=== PATIENT | male | born 1975 | race Two or more races ===

== ENCOUNTER 2025-05-21 09:17 | Inpatient (IN) | payer OTHER ==
[~2025-05-21] VITALS: Ht 149.9 cm; Wt 55.2 kg
--- NOTE | 2025-05-21 09:44 | ED.PDOC ---
History of Present Illness HPI Comments 50-year-old male presents here with dizziness abdominal pain and states they got a call from laboratory that his hemoglobin is 5.5. Patient was recently admitted to an outside hospital in early April where he was diagnosed with gastric cancer. He was placed on iron pills soon after. Daughter states he does report black stools since his discharge on May 06 from the hospital. He is seeing a cancer physician and found [facility] who was already started his cancer treatment and he has a port that has been placed but no chemotherapy has not started yet. Patient denies any recent cough cold runny nose fever or chills. No shortness of breath. Chief Complaint: Abnormal LAB's Time Seen by MD: 09:40 Reviewed Notes: Nurses Notes, Medications, Allergies Allergies: Coded Allergies: NO KNOWN ALLERGIES (Unverified , 05/21/25) Information Source: Patient Mode of Arrival: Ambulatory Severity: Moderate Timing: Days Duration: Since onset Prehospital treatment: None Past Medical History PAST MEDICAL HISTORY: Cancer (stomach) Surgical History: Denies all surgeries Family History Family History: Unknown Social History Smoker: Non-Smoker Alcohol: Denies ETOH Use Drugs: Denies Drug Use Lives In: Home Constitutional: denies: chills, diaphoresis, fatigue, fever, malaise, sweats, weakness, others EENTM: denies: blurred vision, double vision, ear bleeding, ear discharge, ear drainage, ear pain, ear ringing, eye pain, eye redness, hearing loss, mouth pain, mouth swelling, nasal discharge, nose bleeding, nose congestion, nose pain, photophobia, tearing, throat pain, throat swelling, voice changes, others Respiratory: denies: cough, hemoptysis, orthopnea, SOB at rest, shortness of breath, SOB with excertion, stridor, wheezing, others Cardiovascular: denies: chest pain, dizzy spells, diaphoresis, Dyspnea on exertion, edema, irregular heart beat, left arm pain, lightheadedness, palpitations, PND, syncope, others Gastrointestinal: denies: abdomen distended, abdominal pain, blood streaked bowels, constipated, diarrhea, dysphagia, difficulty swallowing, hematemesis, melena, nausea, poor appetite, poor fluid intake, rectal bleeding, rectal pain, vomiting, others Genitourinary: denies: burning, dysuria, flank pain, frequency, hematuria, incontinence, penile discharge, penile sore, pain, testicle pain, testicle swelling, urgency, others Neurological: denies: dizziness, fainting, headache, left sided numbness, left sided weakness, numbness, paresthesia, pre-existing deficit, right sided numbness, right sided weakness, seizure, speech problems, tingling, tremors, weakness, others Musculoskeletal: denies: back pain, gout, joint pain, joint swelling, muscle pain, muscle stiffness, neck pain, others Integumetry: denies: bruises, change in color, change in hair/nails, dryness, laceration, lesions, lumps, rash, wounds, others Allergic/Immunocompromised: denies: Difficulty Healing, Frequent Infections, Hives, Itching, others Hematologic/Lymphatic: denies: anemia, blood clots, easy bleeding, easy bruising, swollen glands, others Endocrine: denies: excessive hunger, excessive sweating, excessive thirst, excessive urination, flushing, intolerance to cold, intolerance to heat, unexpl ained weight gain, unexplained weight loss, others Psychiatric: denies: anxiety, bipolar disorder, depression, hopeless, panic disorder, schizophrenia, sleepless, suicidal, others All Other Systems: Reviewed and Negative Physical Exam General Appearance: Mild Distress, Normal, Thin HEENT: Normal ENT Inspection, Pharynx Normal Neck: Full Range of Motion, Non-Tender, Normal, Normal Inspection Respiratory: Chest Non-Tender, Lungs Clear, No Accessory Muscle Use, No Respiratory Distress, Normal Breath Sounds Cardiovascular: No Edema, No Murmur, No Gallop, Normal Peripheral Pulses, Regular Rate/Rhythm Breast Exam: Deferred Gastrointestinal: No Organomegaly, No Pulsatile Mass, Normal Bowel Sounds, Soft, Tenderness (Mild diffuse abdominal tenderness to palpation worse in the epigastric region) Genitalia: Deferred Pelvic: Deferred Rectal: Deferred Extremities: No calf tenderness, Normal capillary refill, Normal inspection, Normal range of motion, Non-tender, No pedal edema Musculoskeletal : Apperance: Normal Neurologic: Alert, safety deposit supervisor II-XII nml as Tested, No Motor Deficits, Normal Affect, Normal Mood, No Sensory Deficits Cerebellar Function: Normal Reflexes: Normal Skin: Dry, Pallor Lymphatic: No Adenopathy Was a procedure done? Was a procedure done?: No Differential Dx Considerations may include: anemia Upper GI bleed, electrolyte disturbance, dehydration, lower GI bleed, severe anemia X-Ray, Labs, Meds, VS Vital Signs Date Time Temp Pulse Resp B/P (MAP) Pulse Ox O2 Delivery O2 Flow Rate FiO2 05/21/25 11:38 18 100 Room Air* 0 21 05/21/25 11:38 98.3 89 18 95/62 (73) 100 98.3 05/21/25 09:18 99.0 106 15 109/68 98 99.0 Lab Test 05/21/25 13:08 05/21/25 12:15 05/21/25 11:34 Range/Units White Blood Count 9.3 4.4-10.8 10^3/uL Red Blood Count 2.32 L 4.5-5.90 10^6/uL Hemoglobin 6.1 *L 13.5-17.5 g/dL Hematocrit 19.3 L 41.0-53.0 % Mean Corpuscular Volume 83.6 80.0-100.0 fL Mean Corpuscular Hemoglobin 26.3 L 28.0-32.0 pg Mean Corpuscular Hemoglobin Concent 31.5 L 32.0-36.0 g/dL Red Cell Distribution Width 19.7 H 11.8-14.3 % Platelet Count 256 140-450 10^3/uL Mean Platelet Volume 8.0 6.9-10.8 fL Neutrophils (%) (Auto) 84.0 H 37.0-80.0 % Lymphocytes (%) (Auto) 8.7 L 10.0-50.0 % Monocytes (%) (Auto) 5.8 0.0-12.0 % Eosinophils (%) (Auto) 0.9 0.0-7.0 % Basophils (%) (Auto) 0.6 0.0-2.0 % Neutrophils # (Auto) 7.8 1.6-8.6 10 ^3/uL Lymphocytes # (Auto) 0.8 0.4-5.4 10 ^3/uL Monocytes # (Auto) 0.5 0-1.3 10 ^3/uL Eosinophils # (Auto) 0.1 0-0.8 10 ^3/uL Basophils # (Auto) 0.1 0-0.2 10 ^3/uL Nucleated Red Blood Cells 0.1 % Iron Level 31 L 65-175 ug/dL Total Iron Binding Capacity 290 250-425 ug/dL Percent Iron Saturation 10.7 L 20-55 % Sodium Level 137 136-145 mmol/L Potassium Level 4.9 3.5-5.1 mmol/L Chloride Level 105 98-107 mmol/L Carbon Dioxide Level 23 20-31 mmol/L Anion Gap 9 5-15 Blood Urea Nitrogen 15 9-23 mg/dL Creatinine 0.77 0.700-1.30 mg/dL Glomerular Filtration Rate Calc 108 >90 mL/min BUN/Creatinine Ratio 19.5 10.0-20.0 Serum Glucose 95 74-106 mg/dL Calcium Level 8.3 L 8.7-10.4 mg/dL Urine Color Yellow Yellow Urine Clarity Turbid H Clear Urine pH 5.5 5.0-9.0 Urine Specific [place] 1.018 1.001-1.035 Urine Protein Negative Negative Urine Ketones Negative Negative Urine Blood Negative Negative /uL Urine Nitrite Negative Negative Urine Bilirubin Negative Negative Urine Urobilinogen Normal Negative mg/dL Urine Leukocyte Esterase Negative Negative /uL Urine RBC 1 0 - 3 /hpf Urine Microscopic WBC 4 H 0-3 /HPF Urine Squamous Epithelial Cells None seen <5 /hpf Urine Bacteria None seen None Seen /hpf Urine Mucus Few None Seen Urine Glucose Normal Normal mg/dL Current Medications Medications (Trade) Dose Ordered Sig/Satish Route Start Time Stop Time Status Last Admin Sodium Chloride 500 ml @ 500 mls/hr Q1H ONCE IV 05/21/25 11:45 05/21/25 12:44 DC 05/21/25 12:00 50-year-old male with a known history of gastric carcinoma presents here with low with hemoglobin at outside facility. He reports dizziness and appears pale to me. I have ordered a CBC BMP and type and screen here in the ER. I have given him stool had to check for stool occult blood. patient has given consent for blood transfusion if needed. Blood work has been returned with a hemoglobin is 6.1. BMP is unremarkable. He has been unable to provide a stool sample to check for occult blood. At this time I have written for transfusion of 1 unit PRBC. Hospitalist team has been contacted for admission. Time of 1ST Reevaluation: 10:10 Reevaluation 1ST: Unchanged Patient Education/Counseling: Diagnosis, Treatment Family Education/Counseling: No Family Present SEPSIS Sepsis Screen Date sepsis recognized/suspect: May 21, 2025 Time Sepsis recognized/suspect: 920 Recent Procedure: No On Antibiotic Therapy: No Respiratory Rate >20: No Heart Rate >90: No Temp<36 C (96.8 F) or >38.3 C: No SBP <90 or MAP <65 mmHG: No New Acute Mental Status Change: No Is the patient on CPAP, BIPAP,: No Physician Orders Stool Occult Blood (05/21/25 11:30) Type And Screen (05/21/25 11:41) Transfuse Blood Product (05/21/25 14:01) Transfuse Blood (05/21/25 ) Packedcells -Active Bleeding (05/21/25 14:03) Vital Signs .PER UNIT PROTOCOL (05/21/25 14:03) Administer Blood Products UD (05/21/25 14:03) Vital Signs Date Time Temp Pulse Resp B/P (MAP) Pulse Ox O2 Delivery O2 Flow Rate FiO2 05/21/25 11:38 18 100 Room Air* 0 21 05/21/25 11:38 98.3 89 18 95/62 (73) 100 98.3 05/21/25 09:18 99.0 106 15 109/68 98 99.0 Laboratory Tests Test 05/21/25 13:08 White Blood Count 9.3 10^3/uL (4.4-10.8) Medications Medications Dose Ordered Sig/Satish Route Start Time Stop Time Status Last Admin Dose Admin Sodium Chloride 500 ml @ 500 mls/hr Q1H ONCE IV 05/21/25 11:45 05/21/25 12:44 DC 05/21/25 12:00 Departure 1 Departure Time of Disposition: 12:10 Impression: Primary Impression: Severe anemia Additional Impression: Gastric cancer Qualified Codes: C16.9 - Malignant neoplasm of stomach, unspecified Disposition: 09 ADMITTED INPATIENT Condition: Serious Critical Care Note Critical Care Time?: Yes (35 min-critical care time only) Critical care comment: Time spent multiple re-evaluations of the patient, calling laboratory for follow up of hemoglobin, ordering blood products speaking to nursing staff, assessing patient's dizziness Stability Stability form required: No Heart Score Heart Score: Heart Score Response (Comments) Value History N/A 0 EKG N/A 0 Age N/A 0 Risk Factors N/A 0 Troponin N/A 0 Total 0 I personally scribed for RICH SUNG MD ([email or web address]) on 05/21/25 at 09:44. Electronically submitted by Kierra Valverde ([email or web address]). RICH SUNG MD May 21, 2025 09:44
[2025-05-21 11:38] VITALS: RESP 18; O2SAT 100
[2025-05-21] MEDS: SODIUM CHLORIDE 0.9% 500 ML IV ONE (12:00)
[2025-05-21 12:45] LABS: Chloride 105 mmol/L (98-107); Potassium 4.9 mmol/L (3.5-5.1); Sodium 137 mmol/L (136-145)
[2025-05-21 12:47] LABS: Anion Gap 9 (5-15); Carbon Dioxide 23 mmol/L (20-31)
[2025-05-21 12:49] LABS: Calcium 8.3 mg/dL (8.7-10.4)
[2025-05-21 12:52] LABS: BUN/Creatinine Ratio 19.5 (10.0-20.0); Blood Urea Nitrogen 15 mg/dL (9-23); Glucose 95 mg/dL (74-106)
[2025-05-21 14:03] LABS: Urine Protein, UAD Negative (Negative)
[2025-05-21 14:06] LABS: Hematocrit 19.3 % (41.0-53.0); Mean Corpuscular Volume 83.6 fL (80.0-100.0)
[2025-05-21 14:07] LABS: Mean Corpuscular Hemoglobin 26.3 pg (28.0-32.0); Nucleated Red Blood Cells % 0.1 %
[2025-05-21 14:14] LABS: Hemoglobin 6.1 g/dL (13.5-17.5)
[2025-05-21 14:35] LABS: Iron 31.0 ug/dL (65-175); Total Iron Binding Capacity 290.0 ug/dL (250-425)
[2025-05-21] MEDS ORDERED: ACETAMINOPHEN 325 MG TAB PO PRN (14:45)
[2025-05-21] MEDS ORDERED: DOCUSATE SOD 100 MG CAP PO PRN (14:45)
[2025-05-21] MEDS ORDERED: ONDANSETRON HCL 4 MG/2 ML VIAL IV PRN (14:45)
[2025-05-21] MEDS ORDERED: HYDROcodone-ACET 5/325MG TAB PO PRN (14:45)
--- NOTE | 2025-05-21 14:48 | DVHHP2 ---
Admitting Diagnosis: Anemia History of Present Illness 50-year-old male presents here with dizziness abdominal pain and states they got a call from laboratory that his hemoglobin is 5.5. Patient was recently admitted to an outside hospital in early April where he was diagnosed with gastric cancer. He was placed on iron pills soon after. Niece states he does report black stools since his discharge on May 06 from the hospital. He is seeing a cancer physician and found to [facility] who was already started his cancer treatment and he has a port that has been placed but no chemotherapy has not started yet. Patient denies any recent cough cold runny nose fever or chills. No shortness of breath. PAST MEDICAL HISTORY: Cancer (stomach) Surgical History: Denies all surgeries Family History Family History: Unknown Social History Smoker: Non-Smoker Alcohol: Denies ETOH Use Drugs: Denies Drug Use Lives In: Home Allergies: Coded Allergies: NO KNOWN ALLERGIES (Unverified , 05/21/25) Current Medications Current Medications Medications (Trade) Dose Ordered Sig/Satish Route PRN Reason Start Time Stop Time Status Last Admin Sodium Chloride (Saline Lock Ns) 10 ml Q8HR IV 05/21/25 22:00 UNV Docusate Sodium (Colace Capsule) 100 mg BIDPRN PRN PO FOR CONSTIPATION 05/21/25 14:45 UNV Acetaminophen (Tylenol Tablet) 650 mg Q6HP PRN PO PAIN SCALE 1-3 OR TEMP>100.4 05/21/25 14:45 UNV Acetaminophen/ Hydrocodone Bitart ([place] 5/325MG Tab) 1 tab Q4HP PRN PO MODERATE PAIN (4-6 PAIN SCALE) 05/21/25 14:45 UNV Ondansetron HCl (Zofran) 4 mg Q4HP PRN IV NAUSEA / VOMITING 05/21/25 14:45 UNV Iron Sucrose 110 ml @ 110 mls/hr DAILY@1200 IV 05/21/25 14:45 05/25/25 12:59 UNV Vital Signs Vital Signs Date Time Temp Pulse Resp B/P (MAP) Pulse Ox O2 Delivery O2 Flow Rate FiO2 05/21/25 11:38 18 100 Room Air* 0 21 05/21/25 11:38 98.3 89 95/62 (73) 98.3 Physical Exam Generally-51 years old male, well nourished. No apparent distress HEENT-atraumatic normocephalic Heart-regular rate and rhythm Lungs clear to auscultate bilaterally Abdomen soft nontender nondistended Musculoskeletal-no cyanosis, positive edema plus one pitting Neuro-AO x3, no focal deficits SEPSIS Sepsis Screen Date sepsis recognized/suspect: May 21, 2025 Time Sepsis recognized/suspect: 920 Recent Procedure: No On Antibiotic Therapy: No Respiratory Rate >20: No Heart Rate >90: No Temp<36 C (96.8 F) or >38.3 C: No SBP <90 or MAP <65 mmHG: No New Acute Mental Status Change: No Is the patient on CPAP, BIPAP,: No Physician Orders Stool Occult Blood (05/21/25 11:30) Transfuse Blood Product (05/21/25 14:01) Transfuse Blood (05/21/25 ) Packedcells -Active Bleeding (05/21/25 14:03) Vital Signs .PER UNIT PROTOCOL (05/21/25 14:03) Administer Blood Products UD (05/21/25 14:03) Admit (05/21/25 14:39) Code Status (05/21/25 14:39) Review Orders With Adm.Md (05/21/25 14:39) Encourage Activity As Tolerate (05/21/25 14:39) Regular Diet (05/21/25 Dinner) Sodium Chloride Lock (Saline Lock Ns) (05/21/25 22:00) Docusate Sodium Capsule (Colace Capsule) (05/21/25 14:45) Acetaminophen Tablet (Tylenol Tablet) (05/21/25 14:45) Notify Md Of Changes From Base (05/21/25 14:39) Advance Directive (05/21/25 14:39) Patient Condition (05/21/25 14:39) Allergies (05/21/25 14:39) Hydrocodone-Acet 5/325mg Tab ([place] 5/32 (05/21/25 14:45) Ondansetron Hcl (Zofran) (05/21/25 14:45) Comprehensive Metabolic Panel (05/22/25 05:00) Comprehensive Metabolic Panel (05/23/25 05:00) Comprehensive Metabolic Panel (05/24/25 05:00) Comprehensive Metabolic Panel (05/25/25 05:00) Comprehensive Metabolic Panel (05/26/25 05:00) Complete Blood Count (05/22/25 05:00) Complete Blood Count (05/23/25 05:00) Complete Blood Count (05/24/25 05:00) Complete Blood Count (05/25/25 05:00) Complete Blood Count (05/26/25 05:00) Iron Sucrose Complex (Venofer) (05/21/25 14:45) Vital Signs Date Time Temp Pulse Resp B/P (MAP) Pulse Ox O2 Delivery O2 Flow Rate FiO2 05/21/25 11:38 18 100 Room Air* 0 21 05/21/25 11:38 98.3 89 18 95/62 (73) 100 98.3 05/21/25 09:18 99.0 106 15 109/68 98 99.0 Laboratory Tests Test 05/21/25 13:08 White Blood Count 9.3 10^3/uL (4.4-10.8) Medications Medications Dose Ordered Sig/Satish Route Start Time Stop Time Status Last Admin Dose Admin Sodium Chloride 500 ml @ 500 mls/hr Q1H ONCE IV 05/21/25 11:45 05/21/25 12:44 DC 05/21/25 12:00 Results Labs Test 05/21/25 13:08 05/21/25 12:15 05/21/25 11:34 Range/Units White Blood Count 9.3 4.4-10.8 10^3/uL Red Blood Count 2.32 L 4.5-5.90 10^6/uL Hemoglobin 6.1 *L 13.5-17.5 g/dL Hematocrit 19.3 L 41.0-53.0 % Mean Corpuscular Volume 83.6 80.0-100.0 fL Mean Corpuscular Hemoglobin 26.3 L 28.0-32.0 pg Mean Corpuscular Hemoglobin Concent 31.5 L 32.0-36.0 g/dL Red Cell Distribution Width 19.7 H 11.8-14.3 % Platelet Count 256 140-450 10^3/uL Mean Platelet Volume 8.0 6.9-10.8 fL Neutrophils (%) (Auto) 84.0 H 37.0-80.0 % Lymphocytes (%) (Auto) 8.7 L 10.0-50.0 % Monocytes (%) (Auto) 5.8 0.0-12.0 % Eosinophils (%) (Auto) 0.9 0.0-7.0 % Basophils (%) (Auto) 0.6 0.0-2.0 % Neutrophils # (Auto) 7.8 1.6-8.6 10 ^3/uL Lymphocytes # (Auto) 0.8 0.4-5.4 10 ^3/uL Monocytes # (Auto) 0.5 0-1.3 10 ^3/uL Eosinophils # (Auto) 0.1 0-0.8 10 ^3/uL Basophils # (Auto) 0.1 0-0.2 10 ^3/uL Nucleated Red Blood Cells 0.1 % Iron Level 31 L 65-175 ug/dL Total Iron Binding Capacity 290 250-425 ug/dL Percent Iron Saturation 10.7 L 20-55 % Sodium Level 137 136-145 mmol/L Potassium Level 4.9 3.5-5.1 mmol/L Chloride Level 105 98-107 mmol/L Carbon Dioxide Level 23 20-31 mmol/L Anion Gap 9 5-15 Blood Urea Nitrogen 15 9-23 mg/dL Creatinine 0.77 0.700-1.30 mg/dL Glomerular Filtration Rate Calc 108 >90 mL/min BUN/Creatinine Ratio 19.5 10.0-20.0 Serum Glucose 95 74-106 mg/dL Calcium Level 8.3 L 8.7-10.4 mg/dL Urine Color Yellow Yellow Urine Clarity Turbid H Clear Urine pH 5.5 5.0-9.0 Urine Specific [place] 1.018 1.001-1.035 Urine Protein Negative Negative Urine Ketones Negative Negative Urine Blood Negative Negative /uL Urine Nitrite Negative Negative Urine Bilirubin Negative Negative Urine Urobilinogen Normal Negative mg/dL Urine Leukocyte Esterase Negative Negative /uL Urine RBC 1 0 - 3 /hpf Urine Microscopic WBC 4 H 0-3 /HPF Urine Squamous Epithelial Cells None seen <5 /hpf Urine Bacteria None seen None Seen /hpf Urine Mucus Few None Seen Urine Glucose Normal Normal mg/dL Primary Diagnosis Portal vein thrombosis not on anticoagulation Severe anemia requiring blood transfusion 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 Patient has not started, diarrhea. Patient was diagnosed with a portal vein thrombosis but ultimately correlation in view of anemia. Patient was blood draw few days ago and oncology recommended patient recorded in ED for blood transfusion. Patient was also taking iron supplement and began to have black stool. IV Venofer Once patient hemoglobin stable recommended discharge and follow up with the outpatient oncology for further evaluation and recommendation Monitor for melena Hemoglobin goal greater than seven Full code SCD for DVT prophylaxis PPI for GI prophylaxis Plan discussed with: Patient, Other (Niece) Problems List: (1) Gastric cancer (2) Severe anemia Date of Service: May 21, 2025 Billing Provider: PATO EL MD Common Visit Codes: [id number] INP/OBS CARE (HIGH) PATO EL MD May 21, 2025 14:48
[2025-05-21] MEDS: IRON SUCROSE COMPLEX 110 ML IV SCH (14:54)
[2025-05-21 17:20] VITALS: BP 121/77; PULSE 79; RESP 15; TEMP 98.2
[2025-05-21 17:23] VITALS: BP 119/76; PULSE 78; RESP 14; TEMP 98.2
[2025-05-21 17:38] VITALS: BP 118/83; PULSE 86; RESP 14; TEMP 98.1
[2025-05-21 19:30] VITALS: BP 121/89; PULSE 90; RESP 18; TEMP 97.8
[2025-05-21] MEDS: SODIUM CHLOR 0.9% PF (SALINE LOCK) 10ML VIAL/SYR IV SCH (22:00)
[2025-05-22] VITALS (8 sets, daily range): BP systolic 108–120; BP diastolic 74–81; PULSE 75–89; RESP 18–24; TEMP 98–98.4; O2SAT 99
[2025-05-22 06:58] LABS: Mean Corpuscular Volume 82.2 fL (80.0-100.0); Nucleated Red Blood Cells % 0.1 %
[2025-05-22 07:03] LABS: Hematocrit 20.8 % (41.0-53.0); Mean Corpuscular Hemoglobin 26.9 pg (28.0-32.0)
[2025-05-22 07:07] LABS: Hemoglobin 6.8 g/dL (13.5-17.5)
[2025-05-22 07:12] LABS: Albumin 3.3 g/dL (3.2-4.8); Anion Gap 9 (5-15); BUN/Creatinine Ratio 24.7 (10.0-20.0); Blood Urea Nitrogen 19 mg/dL (9-23); Carbon Dioxide 25 mmol/L (20-31); Chloride 105 mmol/L (98-107); Glucose 87 mg/dL (74-106); Potassium 4.5 mmol/L (3.5-5.1); Sodium 139 mmol/L (136-145)
[2025-05-22 07:15] LABS: Alanine Aminotransferase 342 U/L (7-40); Bilirubin, Total 1.7 mg/dL (0.2-1.0); Calcium 8.2 mg/dL (8.7-10.4); Total Protein 5.2 g/dL (5.7-8.2)
[2025-05-22 07:20] LABS: Alkaline Phosphatase 1309 U/L (46-116)
[2025-05-22 08:21] LABS: INR 1.01 (0.9-1.15); Partial Thromboplastin Time 26.8 SEC (24.5-34.5); Prothrombin Time 10.7 sec (9.3-11.8)
--- NOTE | 2025-05-22 11:53 | DVHPN2 ---
Subjective The patient seen and examined at bedside. He is very pale and weak. Reviewed: Care Plan, H&P, Labs, Medications, Previous Orders Changes from previous H/P or p: No Changes Objective Vitals Vital Signs Date Time Temp Pulse Resp B/P (MAP) Pulse Ox O2 Delivery O2 Flow Rate FiO2 05/22/25 10:10 98.0 82 20 116/78 98.0 05/22/25 09:30 99 05/22/25 09:30 Room Air* 0 21 Intake/Output Intake and Output 05/22/25 07:00 Intake Total 710 ml Output Total 0 ml Balance 710 ml Intake Oral 0 ml IV Total 610 ml Other 100 ml Output Urine Total 0 ml General Appearance: Alert, Oriented X3, Cooperative, No acute distress HEENT: Atraumatic, PERRLA, EOMI, Mucous membr. moist/pink Neck: Supple Lungs: Clear to auscultation, Normal air movement Cardiovascular: Regular rate, Normal S1, Normal S2, No murmurs, Gallops, Rubs Abdomen: Normal bowel sounds, Soft, No tenderness Neuro: Cranial nerves 3-12 NL Psych/Mental Status: Mental status NL Medications Current Medications Medications Dose Ordered Sig/Satish Route Start Time Stop Time Status Last Admin Dose Admin Sodium Chloride 10 ml Q8HR IV 05/21/25 22:00 05/22/25 06:00 10 ML Docusate Sodium 100 mg BIDPRN PRN PO 05/21/25 14:45 Acetaminophen 650 mg Q6HP PRN PO 05/21/25 14:45 Acetaminophen/ Hydrocodone Bitart 1 tab Q4HP PRN PO 05/21/25 14:45 Ondansetron HCl 4 mg Q4HP PRN IV 05/21/25 14:45 Iron Sucrose 110 ml @ 110 mls/hr DAILY@1200 IV 05/21/25 14:45 05/25/25 12:59 05/21/25 14:54 110 MLS/HR Laboratory Results Laboratory Tests 05/22/25 06:12 Chemistry Test 05/21/25 12:15 05/22/25 06:12 Calcium Level 8.3 mg/dL (8.7-10.4) L 8.2 mg/dL (8.7-10.4) L Albumin 3.3 g/dL (3.2-4.8) Total Protein 5.2 g/dL (5.7-8.2) L Coagulation Test 05/22/25 06:12 Prothrombin Time 10.7 sec (9.3-11.8) Prothrombin Time INR 1.01 (0.9-1.15) Activated Partial Thromboplast Time 26.8 SEC (24.5-34.5) LFT Test 05/22/25 06:12 Alanine Aminotransferase (ALT) 342 U/L (7-40) H Alkaline Phosphatase 1309 U/L (46-116) H Aspartate Amino Transferase (AST) 280 U/L (13-40) H Total Bilirubin 1.7 mg/dL (0.2-1.0) H Urinalysis Test 05/21/25 11:34 Urine Color Yellow (Yellow) Urine Clarity Turbid (Clear) H Urine pH 5.5 (5.0-9.0) Urine Specific [place] 1.018 (1.001-1.035) Urine Protein Negative (Negative) Urine Ketones Negative (Negative) Urine Blood Negative /uL (Negative) Urine Nitrite Negative (Negative) Urine Bilirubin Negative (Negative) Urine Urobilinogen Normal mg/dL (Negative) Urine Leukocyte Esterase Negative /uL (Negative) Urine RBC 1 /hpf (0 - 3) Urine Microscopic WBC 4 /HPF (0-3) H Urine Squamous Epithelial Cells None seen /hpf (<5) Urine Bacteria None seen /hpf (None Seen) Urine Mucus Few (None Seen) Urine Glucose Normal mg/dL (Normal) Labs and/or images reviewed: Labs reviewed by me Assessment/Plan Assessment/Plan Portal vein thrombosis not on anticoagulation Severe anemia requiring blood transfusion 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 Patient has not started chemotherapy yet. He suppose to start on Thursday. Patient was diagnosed with a portal vein thrombosis but ultimately correlation in view of anemia. Patient was blood draw few days ago and oncology recommended patient recorded in ED for blood transfusion. Patient was also taking iron supplement and began to have black stool. IV Venofer Monitor for melena Hemoglobin goal greater than seven Plan discussed with: Patient Date of Service: May 22, 2025 Billing Provider: GRACE MAJANO MD Common Visit Codes: [id number] INP/OBS CARE(HIGH) GRACE MAJANO MD May 22, 2025 11:53
[2025-05-22 23:26] LABS: Hematocrit 26.7 % (41.0-53.0); Hemoglobin 8.8 g/dL (13.5-17.5)
[2025-05-23 00:35] VITALS: PULSE 81; RESP 18; O2SAT 98
[2025-05-23 01:00] VITALS: BP 118/72; PULSE 81; RESP 18; TEMP 97.8; O2SAT 98
[2025-05-23] MEDS ORDERED: FER325T PO (01:43)
[2025-05-23] MEDS ORDERED: IBUP-1453 PO (01:43)
[2025-05-23 05:00] VITALS: BP 112/55; PULSE 78; RESP 17; TEMP 97.7; O2SAT 98
[2025-05-23 07:14] LABS: Hematocrit 24.2 % (41.0-53.0); Hemoglobin 8.0 g/dL (13.5-17.5); Mean Corpuscular Hemoglobin 27.7 pg (28.0-32.0); Mean Corpuscular Volume 83.4 fL (80.0-100.0); Nucleated Red Blood Cells % 0.0 %
[2025-05-23 07:28] LABS: Albumin 3.3 g/dL (3.2-4.8); Anion Gap 10 (5-15); BUN/Creatinine Ratio 21.7 (10.0-20.0); Blood Urea Nitrogen 15 mg/dL (9-23); Carbon Dioxide 23 mmol/L (20-31); Chloride 104 mmol/L (98-107); Glucose 84 mg/dL (74-106); Potassium 4.0 mmol/L (3.5-5.1); Sodium 137 mmol/L (136-145)
[2025-05-23 07:31] LABS: Alanine Aminotransferase 333 U/L (7-40); Bilirubin, Total 3.1 mg/dL (0.2-1.0); Calcium 8.1 mg/dL (8.7-10.4); Total Protein 5.2 g/dL (5.7-8.2)
[2025-05-23 07:41] LABS: Alkaline Phosphatase 1333 U/L (46-116)
[2025-05-23 09:00] VITALS: BP 119/83; PULSE 87; RESP 18; TEMP 98.1; O2SAT 97
--- NOTE | 2025-05-23 11:42 | DVHDS2 ---
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 Labs/Diagnostic Data: Laboratory Results Test 05/23/25 06:41 05/22/25 20:17 05/22/25 06:12 05/21/25 13:08 White Blood Count 8.2 10^3/uL (4.4-10.8) Red Blood Count 2.90 10^6/uL (4.5-5.90) Hemoglobin 8.0 g/dL (13.5-17.5) Hematocrit 24.2 % (41.0-53.0) Mean Corpuscular Volume 83.4 fL (80.0-100.0) Mean Corpuscular Hemoglobin 27.7 pg (28.0-32.0) Mean Corpuscular Hemoglobin Concent 33.3 g/dL (32.0-36.0) Red Cell Distribution Width 17.7 % (11.8-14.3) Platelet Count 193 10^3/uL (140-450) Mean Platelet Volume 7.5 fL (6.9-10.8) Neutrophils (%) (Auto) 82.3 % (37.0-80.0) Lymphocytes (%) (Auto) 9.4 % (10.0-50.0) Monocytes (%) (Auto) 6.6 % (0.0-12.0) Eosinophils (%) (Auto) 1.1 % (0.0-7.0) Basophils (%) (Auto) 0.6 % (0.0-2.0) Neutrophils # (Auto) 6.7 10 ^3/uL (1.6-8.6) Lymphocytes # (Auto) 0.8 10 ^3/uL (0.4-5.4) Monocytes # (Auto) 0.5 10 ^3/uL (0-1.3) Eosinophils # (Auto) 0.1 10 ^3/uL (0-0.8) Basophils # (Auto) 0 10 ^3/uL (0-0.2) Nucleated Red Blood Cells 0.0 % Sodium Level 137 mmol/L (136-145) Potassium Level 4.0 mmol/L (3.5-5.1) Chloride Level 104 mmol/L (98-107) Carbon Dioxide Level 23 mmol/L (20-31) Anion Gap 10 (5-15) Blood Urea Nitrogen 15 mg/dL (9-23) Creatinine 0.69 mg/dL (0.700-1.30) Glomerular Filtration Rate Calc 111 mL/min (>90) BUN/Creatinine Ratio 21.7 (10.0-20.0) Serum Glucose 84 mg/dL (74-106) Calcium Level 8.1 mg/dL (8.7-10.4) Total Bilirubin 3.1 mg/dL (0.2-1.0) Aspartate Amino Transferase (AST) 249 U/L (13-40) Alanine Aminotransferase (ALT) 333 U/L (7-40) Alkaline Phosphatase 1333 U/L (46-116) Total Protein 5.2 g/dL (5.7-8.2) Albumin 3.3 g/dL (3.2-4.8) Stool Occult Blood Negative (Negative) Stool Occult Blood Sample #3 (Negative) Prothrombin Time 10.7 sec (9.3-11.8) Prothrombin Time INR 1.01 (0.9-1.15) Activated Partial Thromboplast Time 26.8 SEC (24.5-34.5) Iron Level 31 ug/dL (65-175) Total Iron Binding Capacity 290 ug/dL (250-425) Percent Iron Saturation 10.7 % (20-55) Test 05/21/25 11:34 Urine Color Yellow (Yellow) Urine Clarity Turbid (Clear) Urine pH 5.5 (5.0-9.0) Urine Specific [place] 1.018 (1.001-1.035) Urine Protein Negative (Negative) Urine Ketones Negative (Negative) Urine Blood Negative /uL (Negative) Urine Nitrite Negative (Negative) Urine Bilirubin Negative (Negative) Urine Urobilinogen Normal mg/dL (Negative) Urine Leukocyte Esterase Negative /uL (Negative) Urine RBC 1 /hpf (0 - 3) Urine Microscopic WBC 4 /HPF (0-3) Urine Squamous Epithelial Cells None seen /hpf (<5) Urine Bacteria None seen /hpf (None Seen) Urine Mucus Few (None Seen) Urine Glucose Normal mg/dL (Normal) Other Laboratory Tests 05/23/25 06:41 Brief Hx & Hospital Course: This is a 50 years old male come to emergency department because of dizzy, abdominal pain and stated that the lab called him and advised him to come to hospital because his hemoglobin is only 5.5. The patient apparently was just diagnosis with gastric cancer at the outside hospital in [facility]. He had had a port put in but no chemotherapy yet. The patient is supposed to see the oncologist at [facility] in a couple day to start chemotherapy. The patient's hemoglobin was 6.1. The patient received two packed red blood cell in the hospital. Today his hemoglobin up to 8.0 he did not complain of any dizziness. I am going to discharge him home. Advised him to follow up with his oncologist in a.m. for initiate his chemotherapy. Advised him to follow up with his primary care physician 1-2 weeks. Activity as tolerated. Diet per home diet. Physical exam: HEENT: Normocephalic atraumatic pupils equal react to light and accommodation. Extraocular muscles intact, conjunctiva pink, oropharynx moist, no thrush, no exudate. Lymphatic: No lymphadenopathy Cardiovascular exam: S1, S2 was heard. No murmurs, rubs, gallops Lung: Clear on auscultation bilaterally, no wheeze, rale, rhonchi. GI: Abdominal soft, nondistended, nontenderness, positive bowel sounds. Extremity: No crepitus, cyanosis, edema. Pedal pulses present bilateral. Full range of motion. Skin: Normal turgor, no rash. Psych: Alert, oriented x3. Neurology: No focal deficits, cranial nerve II to XII grossly intact. This medical document was created using an electronic medical record system with M*[employer]iot[employer] direct computerized dictation system. Although this document has been carefully reviewed, there may still be some phonetic and typographical errors. These areas are purely typographical due to imperfections of the software programs, and do not reflect any compromise in the patient's medical care. 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 Medications: resume home meds Scheduled Ferrous Sulfate (Ferrous Sulfate), 65 MG PO DAILY, (Reported) Ibuprofen (Ibuprofen), 1 TAB PO Q6HPRN, (Reported) Discharge Statement: "Patient was advised to return to the ER or call 911 if any headaches, dizziness, shortness of breath, chest pain, abdominal pain, bleeding, fevers, or worsening of medical condition. Patient was counseled about treatment plan, medications, possible side effects, patientverbalized understanding. All questions were answered to the best of my ability. This discharge took greater then 30 minutes in planning, reviewing documentation, counseling the patient, and discussing with other team members." ASSESSMENT ASSESSMENT Assessment acute blood lost anemia Date of Service: May 23, 2025 Billing Provider: GRACE MAJANO MD Common Visit Codes: 81050-QKE/OBS DISCH DAY >30min GRACE MAJANO MD May 23, 2025 11:42
[2025-05-23 13:11] VITALS: BP 109/72; PULSE 93; RESP 16; TEMP 98; O2SAT 96
== END 2025-05-23 15:09 | disposition home or self-care (01) | DRG 663 ==
LOC: ER 09:17 → OVERFLOW 14:39 → CENTRAL 05-22 23:33
PROVIDERS: ADMIT Internal Medicine; ATTEND Internal Medicine
PROC: 30233N1 Transfusion of Nonautologous Red Blood Cells into Peripheral Vein, Percutaneous Approach (ICD-10-PCS; principal; 2025-05-21)
DX: D62 Acute posthemorrhagic anemia (principal); I81 Portal vein thrombosis; C16.9 Malignant neoplasm of stomach, unspecified; C78.7 Secondary malignant neoplasm of liver and intrahepatic bile duct
CPT/HCPCS: 36415; 36430; 80048; 80053; 81001; 82270; 83540; 83550; 85014; 85018; 85025; 85610; 85730; 86850; 86900; 86901; 86920; 96360; 99291; G0378; J1756

== ENCOUNTER 2025-08-10 20:19 | Inpatient (IN) | payer OTHER ==
[~2025-08-10] VITALS: Ht 162.6 cm; Wt 48.4 kg
[2025-08-10] MEDS: SOD CHL 0.45% 1,000 ML IV SCH (01:55)
[2025-08-10] MEDS: CALCIUM GLUC 1,000mg/50ml-NS 50 ML IV ONE (01:55)
[~2025-08-10 20:19] MED LIST: FER325T PO; IBUP-1453 PO
[2025-08-10] MEDS: SODIUM CHLORIDE 0.9% 500 ML IV ONE (20:39)
[2025-08-10] MEDS: ONDANSETRON HCL 4 MG/2 ML VIAL IV ONE (20:45)
[2025-08-10 20:55] VITALS: PULSE 106
--- NOTE | 2025-08-10 21:00 | ED.PDOC ---
HPI (NEURO) HPI Comments HPI: 50 y/o M, PUNEET, presents to the ED for CC of s/p syncopal episode. EMS reports, patient is coming from home where he had a witnessed syncopal episode by family following a period of active emesis. Per EMS, patient has stage IV stomach/liver cancer and has had [id number] episodes in the last x3days. Family relays, tiki ent last had chemotherapy x1week ago. Patient endorses, hitting his head during syncopal episode. At this time patient c/o pain to his left rib area. Pain is acute on chronic. Patient denies active bleeding, dizziness, or melena. No other symptoms or modifying factors are present at this time. 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 REVIEW OF SYSTEMS: CONSTITUTIONAL: Denies acute: fever, diaphoresis, chills, HEAD: Denies acute: headache, photophobia Eyes: Denies acute: Double vision, vision loss, eye pain, eye discharge. EARS: Denies acute: tinnitus, hearing loss, ear discharge, ear pain, THROAT: Denies acute: sore throat, swelling, difficulty swallowing , pain with swallowing, change in voice. NECK: Denies acute: neck pain, neck swelling, stiff neck. HEART: Denies acute : chest pain, palpitations, LUNGS: Denies acute: SOB, wheezing, cough, hemoptysis ABDOMEN: Denies acute: abdominal pain, Nausea, Vomiting, diarrhea, melena , hematemesis, hematochezia SKIN: Denies acute: rash, redness, lesions, itchiness. EXTREMITIES: Denies acute: calf pain, numbness, tingling, weakness, denies pain in extremity. Denies acute: Low back pain. Neuro: Denies acute: focal neurological deficit, motor or sensory focal neurological deficit, tremors, seizure like activity, confusion, change in mental status, loss of bowel or bladder function, cauda equina like symptoms. : Denies acute: dysuria, hematuria, flank pain, increase in urinary frequency. PSYCH: Denies acute: hallucination, suicidal ideation, homicidal ideation. PHYSICAL EXAM: General: ----mild----acute distress, awake and alert. Head: normocephalic, atraumatic. No raccoon's eyes, no patten sign. Neck: supple, trachea is midline, no swelling. Throat: Normal phonation. Eyes:, no erythema, no purulent discharge, no proptosis, no icterus. Heart: regular tachycardia, no significant murmur appreciated. Lungs: no apparent respiratory distress, Able to speak in full sentences. No wheezing, no rhonchi, no crackles. No stridors Clear to auscultation bilaterally. Abdomen: non tender to palpation, non distended, soft, no guarding, no rebound, + bowel sounds. Neuro: Awake, Alert, oriented to name, self, situation, follows commands GCS=15. Speech is normal. Skin: no petechia, no purpura, no cyanosis, non-pale, not jaundice. Lower extremities: --no - Pitting edema no deformity, no focal swelling, no calf TTP. Makes eye contact. moves all four extremities. Face: no apparent facial droop. No nuchal rigidity, Kernig's sign, Brudzinski's sign, no meningeal signs. ED COURSE: DISCLAIMER: This medical document was created using an electronic medical record system with voice recognition software and computerized dictation system. Although this document has been carefully reviewed, there might still be some phonetic and typographical errors. Occasional wrong-word or "sound-alike" substitutions may have occurred due to the inherent limitations of voice recognition software. These areas are purely typographical due to imperfections of the software programs and do not reflect any compromise in the patient's medical care. Please read the chart carefully and recognize, using context, where these substitutions have occurred. Trotter: Syncope Collapse, hypotension, generalized weakness HPI: Poor Historian. REVIEW OF SYSTEMS: CONSTITUTIONAL: Denies acute: fever, diaphoresis, chills, HEAD: Denies acute: headache, photophobia Eyes: Denies acute: Double vision, vision loss, eye pain, eye discharge. EARS: Denies acute: tinnitus, hearing loss, ear discharge, ear pain, THROAT: Denies acute: sore throat, swelling, difficulty swallowing , pain with swallowing, change in voice. NECK: Denies acute: neck pain, neck swelling, stiff neck. HEART: Denies acute : chest pain, palpitations, LUNGS: Denies acute: SOB, wheezing, cough, hemoptysis ABDOMEN: Denies acute: abdominal pain, diarrhea, melena , hematemesis, hematochezia SKIN: Denies acute: rash, redness, lesions, itchiness. EXTREMITIES: Denies acute: calf pain, numbness, tingling, weakness, denies pain in extremity. Denies acute: Low back pain. Neuro: Denies acute: focal neurological deficit, motor or sensory focal neurological deficit, tremors, seizure like activity, confusion, , change in mental status, loss of bowel or bladder function, cauda equina like symptoms. : Denies acute: dysuria, hematuria, flank pain, increase in urinary frequency. PSYCH: Denies acute: hallucination, suicidal ideation, homicidal ideation. PHYSICAL EXAM: General: ------NO--acute distress, awake and alert. Head: normocephalic, atraumatic. No raccoon's eyes, no patten sign. Neck: supple, trachea is midline, no swelling. Throat: Normal phonation. Eyes:, no erythema, no purulent discharge, no proptosis, no icterus. Heart: regular rate, regular rhythm, no significant murmur appreciated. Lungs: no apparent respiratory distress, Able to speak in full sentences. No wheezing, no rhonchi, no crackles. No stridors Clear to auscultation bilaterally. Abdomen: non tender to palpation, non distended, soft, no guarding, no rebound, + bowel sounds. Neuro: Awake, Alert, oriented to name, self, situation, follows commands GCS=15. Speech is normal. Skin: no petechia, no purpura, no cyanosis, non-pale, not jaundice. Lower extremities: --no - Pitting edema no deformity, no focal swelling, no calf TTP. Makes eye contact. moves all four extremities. Face: no apparent facial droop. No nuchal rigidity, Kernig's sign, Brudzinski's sign, no meningeal signs. ED COURSE: DISCLAIMER: This medical document was created using an electronic medical record system with voice recognition software and computerized dictation system. Although this document has been carefully reviewed, there might still be some phonetic and typographical errors. Occasional wrong-word or "sound-alike" substitutions may have occurred due to the inherent limitations of voice recognition software. These areas are purely typographical due to imperfections of the software programs and do not reflect any compromise in the patient's medical care. Please read the chart carefully and recognize, using context, where these substitutions have occurred. Chief Complaint: Syncope Time Seen by MD: 20:50 Reviewed Notes: Nurses Notes, Trainman Notes, Medications, Allergies Information Source: Patient, Emergency Med Personnel Mode of Arrival: EMS Severity: Moderate Timing: Days Duration: Minutes Prehospital treatment: None Onset: At rest Circumstances: Other (following emesis) Symptoms: Syncope Before: Lethargic During: Awake After: Normal Mentation History of: Anemia, Cancer Modifying factors: Nothing Associated Signs and Symptoms: Nausea, Vomiting Was a procedure done? Was a procedure done?: No Differential Diagnosis (SZ) General Weakness: Anemia, Dehydration X-Ray, Labs, Meds, VS Vital Signs Date Time Temp Pulse Resp B/P (MAP) Pulse Ox O2 Delivery O2 Flow Rate FiO2 08/10/25 20:55 98.3 106 18 84/44 (57) 100 98.3 08/10/25 20:55 106 08/10/25 20:21 109 08/10/25 20:21 98.0 110 18 92/57 98 98.0 Lab Test 08/10/25 23:03 08/10/25 22:30 08/10/25 22:09 08/10/25 21:45 Range/Units Lactic Acid Level 2.8 *H 0.4-2.0 mmol/L Urine Color Light-yellow Yellow Urine Clarity Clear Clear Urine pH 5.0 5.0-9.0 Urine Specific [place] 1.015 1.001-1.035 Urine Protein Trace H Negative Urine Ketones Negative Negative Urine Blood Negative Negative /uL Urine Nitrite Negative Negative Urine Bilirubin Negative Negative Urine Urobilinogen Normal Negative mg/dL Urine Leukocyte Esterase Negative Negative /uL Urine RBC None seen 0 - 3 /hpf Urine Microscopic WBC 2 0-3 /HPF Urine Squamous Epithelial Cells Few <5 /hpf Urine Bacteria None seen None Seen /hpf Urine Mucus Few None Seen Urine Sperm Present None Seen /hpf Urine Glucose Normal Normal mg/dL White Blood Count 4.2 L 4.4-10.8 10^3/uL Red Blood Count 0.93 L 4.5-5.90 10^6/uL Hemoglobin 2.4 *L 13.5-17.5 g/dL Hematocrit 7.6 L 41.0-53.0 % Mean Corpuscular Volume 81.3 80.0-100.0 fL Mean Corpuscular Hemoglobin 26.1 L 28.0-32.0 pg Mean Corpuscular Hemoglobin Concent 32.2 32.0-36.0 g/dL Red Cell Distribution Width 19.3 H 11.8-14.3 % Platelet Count 104 L 140-450 10^3/uL Mean Platelet Volume 7.2 6.9-10.8 fL Neutrophils (%) (Auto) 67.8 37.0-80.0 % Lymphocytes (%) (Auto) 19.6 10.0-50.0 % Monocytes (%) (Auto) 12.0 0.0-12.0 % Eosinophils (%) (Auto) 0.0 0.0-7.0 % Basophils (%) (Auto) 0.6 0.0-2.0 % Neutrophils # (Auto) 2.8 1.6-8.6 10 ^3/uL Lymphocytes # (Auto) 0.8 0.4-5.4 10 ^3/uL Monocytes # (Auto) 0.5 0-1.3 10 ^3/uL Eosinophils # (Auto) 0 0-0.8 10 ^3/uL Basophils # (Auto) 0 0-0.2 10 ^3/uL Nucleated Red Blood Cells 1.3 % Hemoglobin A1c < 5.7 <5.7 % A1C Troponin I High Sensitivity < 3 L </=54 ng/L Test 08/10/25 20:57 Range/Units Sodium Level 140 136-145 mmol/L Potassium Level 4.0 3.5-5.1 mmol/L Chloride Level 106 98-107 mmol/L Carbon Dioxide Level 22 20-31 mmol/L Anion Gap 12 5-15 Blood Urea Nitrogen 28 H 9-23 mg/dL Creatinine 0.74 0.700-1.30 mg/dL Glomerular Filtration Rate Calc 109 >90 mL/min BUN/Creatinine Ratio 37.8 H 10.0-20.0 Serum Glucose 172 H 74-106 mg/dL Lactic Acid Level 3.8 *H 0.4-2.0 mmol/L Calcium Level 7.1 L 8.7-10.4 mg/dL Magnesium Level 1.6 1.6-2.6 mg/dL Total Bilirubin 0.6 0.2-1.0 mg/dL Aspartate Amino Transferase (AST) 28 13-40 U/L Alanine Aminotransferase (ALT) 25 7-40 U/L Alkaline Phosphatase 189 H 46-116 U/L Troponin I High Sensitivity < 3 L </=54 ng/L B-Type Natriuretic Peptide 6.14 0-100 pg/mL Total Protein 4.2 L 5.7-8.2 g/dL Albumin 2.3 L 3.2-4.8 g/dL Current Medications Medications (Trade) Dose Ordered Sig/Satish Route Start Time Stop Time Status Last Admin Sodium Chloride 500 ml @ 500 mls/hr Q1H ONCE IV 08/10/25 20:45 08/10/25 21:44 DC 08/10/25 20:39 Sodium Chloride 1,000 ml @ 1,000 mls/hr Q1H ONCE IV 08/10/25 21:45 08/10/25 22:44 DC 08/10/25 21:37 Time of 1ST Reevaluation: 21:20 Reevaluation 1ST: Unchanged Patient Education/Counseling: Diagnosis, Treatment Family Education/Counseling: No Family Present Departure 1 Departure Time of Disposition: 21:24 Impression: Primary Impression: Syncope and collapse Additional Impressions: Hypotension Closed head injury Severe anemia Disposition: ADMITTED INPATIENT Admit to: Tele Condition: Guarded Discharged With: Self Critical Care Note Critical Care Time?: Yes (55 min-critical care time only) I personally scribed for PANTERA CANO DO ([email or web address]) on 08/10/25 at 21:00. Elect ronically submitted by Kierra Valverde [email or web address]). PANTERA CANO DO Aug 10, 2025 21:00
--- NOTE | 2025-08-10 21:09 | DVH ---
INDICATION: syncopal episode TECHNIQUE: Frontal view of the chest. COMPARISON: None FINDINGS/IMPRESSION: The lungs are clear. The cardiomediastinal silhouette is unremarkable. No pleural effusion or pneumothorax. No acute osseous abnormality. Right port tip projects over the SVC.
[2025-08-10 21:37] LABS: Alanine Aminotransferase 25 U/L (7-40); Anion Gap 12 (5-15); BUN/Creatinine Ratio 37.8 (10.0-20.0); Carbon Dioxide 22 mmol/L (20-31); Chloride 106 mmol/L (98-107); Magnesium 1.6 mg/dL (1.6-2.6); Potassium 4.0 mmol/L (3.5-5.1); Sodium 140 mmol/L (136-145)
[2025-08-10] MEDS: SODIUM CHLORIDE 0.9% 1,000 ML IV ONE (21:37)
[2025-08-10 21:38] LABS: Bilirubin, Total 0.6 mg/dL (0.2-1.0)
[2025-08-10 21:48] LABS: Albumin 2.3 g/dL (3.2-4.8); Alkaline Phosphatase 189 U/L (46-116); Blood Urea Nitrogen 28 mg/dL (9-23); Calcium 7.1 mg/dL (8.7-10.4); Glucose 172 mg/dL (74-106); Total Protein 4.2 g/dL (5.7-8.2)
[2025-08-10 21:52] LABS: Lactic Acid w/Reflex 3.8 mmol/L (0.4-2.0)
[2025-08-10] MEDS ORDERED: ONDANSETRON HCL 4 MG/2 ML VIAL IV PRN (22:15)
[2025-08-10] MEDS ORDERED: HYDROcodone-ACET 5/325MG TAB PO PRN (22:15)
[2025-08-10] MEDS ORDERED: IBUPROFEN 600 MG TAB PO PRN (22:15)
[2025-08-10] MEDS ORDERED: DOCUSATE SOD 100 MG CAP PO PRN (22:15)
--- NOTE | 2025-08-10 22:22 | DVH ---
EXAM: CT HEAD WITHOUT CONTRAST INDICATION: fall, syncope TECHNIQUE: CT images of the head were obtained without administration of IV contrast. CT scans at this facility use dose modulation, iterative reconstruction, and/or weight based dosing when appropriate to reduce radiation dose to as low as reasonably achievable. COMPARISON: None FINDINGS: The cerebral parenchyma appears to be normal configuration and attenuation. The ventricles, cisterns, and sulci appear age-appropriate. There is no evidence for acute territorial infarct, hemorrhage, or mass effect. The orbits are normal. The visualized paranasal sinuses and mastoid air cells are clear. The soft tissues and osseous structures appear within normal limits. IMPRESSION: 1. No acute territorial infarct, intracranial hemorrhage, or mass effect. If clinical symptoms persist, MRI may be beneficial in further evaluation.
[2025-08-10] MEDS ORDERED: MORPHINE SULFATE INJ 2 MG/ml SYRG IV PRN (22:30)
[2025-08-10] MEDS ORDERED: NITROGLYCERIN 0.4 MG SL TAB SL PRN (22:30)
[2025-08-10 22:41] LABS: Hematocrit 7.6 % (41.0-53.0); Mean Corpuscular Hemoglobin 26.1 pg (28.0-32.0); Mean Corpuscular Volume 81.3 fL (80.0-100.0); Nucleated Red Blood Cells % 1.3 %
[2025-08-10 22:52] LABS: Hemoglobin 2.4 g/dL (13.5-17.5)
[2025-08-10 23:08] LABS: Urine Protein, UAD TRACE (Negative)
--- NOTE | 2025-08-10 23:14 | DVHHP2 ---
History of Present Illness Reason for Visit: Syncope and collapse History of Present Illness The patient is a 50-year-old male with past medical history of stage IV gastric cancer with Mets to liver, on chemotherapy, last chemo 1 week ago, and anemia presented to [facility] ED for evaluation of syncopal episode. Rebecca rosario reports that he was coming from home where he had witnessed syncopal episode by family member associated with active emesis, head trauma, had 3 syncopal episode in the last 3 days, left rib pain, getting worse today that prompted this visit. Patient was admitted and discharged from the hospital on May 23, 2025 with the following: acute blood lost anemia status post blood transfusion, portal vein thrombosis not on anticoagulation, severe anemia requiring blood transfusion. Patient was seen and evaluated in the ED, laboratory data shows WBC 4.2, hemoglobin 2.4, hematocrit 7.6, platelets 104, sodium 140, potassium 4.0, BUN 28, creatinine 0.74, GFR 109, glucose 172, hemoglobin A1c < 5.7, calcium 7.1, lactic acid 3.8, BNP 6.14, albumin 2.3, pr otein 4.2, blood pressure 84/44, heart rate 106, temperature 98.3 F, O2 saturation 99% on room air. Chest x-ray show no acute osseous abnormality, right port tip projects over the SVC. Please see medication orders section in the computer. On my assessment, patient denied chest pain, no headache, dizziness, diaphoresis, shortness of breaths, no abdominal pain, diarrhea, nausea, vom iting, fever, no chills. Patient was admitted for further evaluation and medical management. Past Medical History Gastric cancer Mets to liver Anemia Portal vein thrombosis Past Surgical History Denies all surgeries Family History Reviewed, noncontributory to the management of this case. Past Social History The patient lives at home, denies smoking, alcohol or illicit drugs abuse. Review of Systems Constitutional: Yes: Weakness; No: Fever, Chills, Sweats, Malaise, Other Eyes: No: Pain, Vision change, Conjunctivae inflammation, Eyelid inflammation, Other, Redness ENT: No: Ear pain, Ear discharge, Nose pain, Nose discharge, Nose congestion, Mouth pain, Mouth swelling, Throat pain, Throat swelling, Other Respiratory: No: Cough, Dry, Shortness of breath, SOB with excertion, Wheezing, Hemoptysis, Pleuritic Pain, Sputum, Wheezing, Other Cardiovascular: Other (Syncope); No: Chest Pain, Palpitations, Orthopnea, Paroxysmal Noc. Dyspnea, Edema, Lt Headedness Gastrointestinal: Nausea, Vomiting; No: Abdominal Pain, Diarrhea, Constipation, Melena, Hematochezia, Other Genitourinary: No Dysuria, No Frequency, No Incontinence, No Hematuria, No Retention, No Other Musculoskeletal: No: other, neck pain, shoulder pain, arm pain, back pain, hand pain, leg pain, foot pain Skin: No: Rash, Lesions, Jaundice, Bruising, Other Neurological: No: Weakness, Numbness, Incoordination, Change in speech, Confusion, Seizures, Other Allergies: Coded Allergies: NO KNOWN ALLERGIES (Unverified , 05/21/25) Medications Current Medications Medications Dose Ordered Sig/Satish Route Start Time Stop Time Status Last Admin Dose Admin Sodium Chloride 1,000 ml @ 50 mls/hr Q20H IV 08/10/25 22:15 UNV Acetaminophen/ Hydrocodone Bitart 1 tab Q4HP PRN PO 08/10/25 22:15 UNV Ondansetron HCl 4 mg Q4HP PRN IV 08/10/25 22:15 UNV Docusate Sodium 100 mg BIDPRN PRN PO 08/10/25 22:15 UNV Ibuprofen 600 mg Q6HP PRN PO 08/10/25 22:15 UNV Midodrine 10 mg TID@0600,1200,1800 PO 08/11/25 06:00 UNV Exam Vital Signs Vital Signs Date Time Temp Pulse Resp B/P (MAP) Pulse Ox O2 Delivery O2 Flow Rate FiO2 08/10/25 20:55 98.3 106 18 84/44 (57) 100 98.3 General Appearance: Alert, Oriented X3, Cooperative, No acute distress HEENT: Atraumatic, PERRLA, EOMI, Mucous membr. moist/pink Respiratory: Normal air movement Cardiovascular: Regular rate, Normal S1, Normal S2, No murmurs Abdominal: Normal bowel sounds, Soft, No tenderness, No hepatospenomegaly, No masses Extremities: No clubbing, No cyanosis, No edema, Normal pulses, No tenderness/swelling Skin: No rashes, No significant lesion Neuro: Normal speech, Normal tone, Sensation intact, Cranial nerves 3-12 NL, Reflexes 2+, Other (Generalized weakness) Psych/Mental Status: Mental status NL, Mood NL Labs/Xrays Labs Test 08/10/25 21:45 08/10/25 20:57 Range/Units Sodium Level 140 136-145 mmol/L Potassium Level 4.0 3.5-5.1 mmol/L Chloride Level 106 98-107 mmol/L Carbon Dioxide Level 22 20-31 mmol/L Anion Gap 12 5-15 Blood Urea Nitrogen 28 H 9-23 mg/dL Creatinine 0.74 0.700-1.30 mg/dL Glomerular Filtration Rate Calc 109 >90 mL/min BUN/Creatinine Ratio 37.8 H 10.0-20.0 Serum Glucose 172 H 74-106 mg/dL Lactic Acid Level 3.8 *H 0.4-2.0 mmol/L Calcium Level 7.1 L 8.7-10.4 mg/dL Magnesium Level 1.6 1.6-2.6 mg/dL Total Bilirubin 0.6 0.2-1.0 mg/dL Aspartate Amino Transferase (AST) 28 13-40 U/L Alanine Aminotransferase (ALT) 25 7-40 U/L Alkaline Phosphatase 189 H 46-116 U/L B-Type Natriuretic Peptide 6.14 0-100 pg/mL Total Protein 4.2 L 5.7-8.2 g/dL Albumin 2.3 L 3.2-4.8 g/dL PATIENT: SIVA MAJANO CONGACCT: [id number] UNIT: [id number] : 1975 LOC: ER ROOM / BED: / AGE / SEX: 50 / M ADM STATUS: REG ER SERVICE 33 ORDERING PHYSICIAN: PANTERA CANO DO PROCEDURE(s): CXRP - CHEST PORTABLE REASON: syncopal episode ORDER NUMBER(s): [id number], ACCESSION NUMBER(s): [id number] INDICATION: syncopal episode TECHNIQUE: Frontal view of the chest. COMPARISON: None FINDINGS/IMPRESSION: The lungs are clear. The cardiomediastinal silhouette is unremarkable. No pleural effusion or pneumothorax. No acute osseous abnormality. Right port tip projects over the SVC. SEPSIS Sepsis Screen Date sepsis recognized/suspect: Aug 10, 2025 Time Sepsis recognized/suspect: 2054 Recent Procedure: No On Antibiotic Therapy: No Respiratory Rate >20: No Heart Rate >90: Yes Temp<36 C (96.8 F) or >38.3 C: No SBP <90 or MAP <65 mmHG: Yes New Acute Mental Status Change: No Is the patient on CPAP, BIPAP,: No Physician Orders Electrocardigram (08/10/25 20:28) Count Team Clerk (08/10/25 ) Complete Blood Count (08/10/25 20:34) Urinalysis (08/10/25 20:34) Chest Portable (08/10/25 20:34) Troponin-I Hs (08/10/25 21:34) Troponin-I Hs (08/10/25 23:34) Head Without Contrast (08/10/25 20:49) Sodium Chloride 0.9% (08/10/25 21:45) Obtain Consent For: (08/10/25 21:54) Packedcell-Noactive Bleeding (08/10/25 21:54) Hemoglobin A1c (08/10/25 22:09) Calcium Gluc 1,000mg/50ml-Ns (08/10/25 22:15) Albumin 25% (Albutein) (08/10/25 22:15) Sod Chl 0.45% (Sodium Chloride 0.45% Via (08/10/25 22:15) Lactic Acid W/ Reflex Order (08/10/25 23:30) Allergies (08/10/25 22:09) Code Status (08/10/25 22:09) Oxygen Per Hour (08/10/25 22:09) Hydrocodone-Acet 5/325mg Tab ([place] 5/32 (08/10/25 22:15) Ondansetron Hcl (Zofran) (08/10/25 22:15) Docusate Sodium Capsule (Colace Capsule) (08/10/25 22:15) Fall Risk Precautions In Place QSHIFT (08/10/25 22:09) Complete Blood Count (08/11/25 04:00) Comprehensive Metabolic Panel (08/11/25 04:00) Cardiac Diet-2gna,Lofat,Lochol (08/11/25 Breakfast) Condition: Serious (08/10/25 22:09) Maintain Bed Rest (08/10/25 22:09) Sequential Compression Device (08/10/25 ) Ibuprofen Tablet (Motrin Tablet) (08/10/25 22:15) Midodrine Tablet (Proamatine Tablet) (08/11/25 06:00) Vital Signs Date Time Temp Pulse Resp B/P (MAP) Pulse Ox O2 Delivery O2 Flow Rate FiO2 08/10/25 20:55 98.3 106 18 84/44 (57) 100 98.3 08/10/25 20:55 106 08/10/25 20:21 109 08/10/25 20:21 98.0 110 18 92/57 98 98.0 Laboratory Tests Test 08/10/25 20:57 Lactic Acid Level 3.8 mmol/L (0.4-2.0) *H White Blood Count Pending Medications Medications Dose Ordered Sig/Satish Route Start Time Stop Time Status Last Admin Dose Admin Sodium Chloride 500 ml @ 500 mls/hr Q1H ONCE IV 08/10/25 20:45 08/10/25 21:44 DC 08/10/25 20:39 500 MLS/HR Sodium Chloride 1,000 ml @ 1,000 mls/hr Q1H ONCE IV 08/10/25 21:45 08/10/25 22:44 08/10/25 21:37 1,000 MLS/HR Assessment/Plan Assessment/Plan Syncope and collapse Hypotension Hyperglycemia Severe anemia Electrolyte imbalance Closed head injury Generalized weakness Plan 1. Admit to telemetry unit 2. Breathing treatment 3. Pain control management 4. Management of fluids and electrolytes 5. Consultation for hospitalist 6. Diagnostic tests chest x-ray 7. DVT prophylaxis-on SCDs 8. Repeat labs CBC, CMP in a.m. 9. Continue with current medical management 10. Treatment plan discussed with patient and RN. Patient verbalized understanding. Plan discussed with: Patient, Other (RN) My Orders Orders - GONZÁLEZ PARKER DNP Procedure Category Date Status Time Hemoglobin A1c LAB 08/10/25 Logged 22:09 Calcium Gluc PHA 08/10/25 Logged 1,000mg/50ml-Ns 22:15 Albumin 25% (Albutein) PHA 08/10/25 Logged 22:15 Sod Chl 0.45% (Sodium PHA 08/10/25 Logged Chloride 0.45% Via 22:15 Lactic Acid W/ Reflex LAB 08/10/25 Logged Order 23:30 Allergies STEVE 08/10/25 In Process 22:09 Code Status CODE 08/10/25 Transmitted 22:09 Oxygen Per Hour RT 08/10/25 Transmitted 22:09 Hydrocodone-Acet PHA 08/10/25 Logged 5/325mg Tab (Calhoun 22:15 Ondansetron Hcl PHA 08/10/25 Logged (Zofran) 22:15 Docusate Sodium PHA 08/10/25 Logged Capsule (Colace 22:15 Fall Risk Precautions STEVE 08/10/[address] 22:09 Complete Blood Count LAB 08/11/25 Verified 04:00 Comprehensive LAB 08/11/25 Verified Metabolic Panel 04:00 Cardiac DIET 08/11/25 Transmitted Diet-2gna,Lofat,Lochol Breakfast Condition: Serious STEVE 08/10/25 In Process 22:09 Maintain Bed Rest STEVE 08/10/25 In Process 22:09 Sequential STEVE 08/10/25 In Process Compression Device Ibuprofen Tablet PHA 08/10/25 Logged (Motrin Tablet) 22:15 Midodrine Tablet PHA 08/11/25 Logged (Proamatine Tablet) 06:00 Problem List: (1) Syncope and collapse (2) Hypotension (3) Hyperglycemia (4) Severe anemia (5) Electrolyte imbalance (6) Closed head injury (7) Generalized weakness Date of Service: Aug 10, 2025 Billing Provider: GONZÁLEZ PARKER DNP Common Visit Codes: [id number] INP/OBS CARE (HIGH) GONZÁLEZ PARKER DNP Aug 10, 2025 23:14
[2025-08-10] MEDS: ALBUMIN 25% 100 ML IV ONE (23:49)
[2025-08-11] VITALS (18 sets, daily range): BP systolic 83–104; BP diastolic 45–70; PULSE 65–113; RESP 14–20; TEMP 97.7–98.4; O2SAT 97–100
[2025-08-11 04:58] LABS: Hematocrit 17.0 % (41.0-53.0); Mean Corpuscular Hemoglobin 29.5 pg (28.0-32.0); Mean Corpuscular Volume 88.0 fL (80.0-100.0); Nucleated Red Blood Cells % 1.0 %
[2025-08-11 05:06] LABS: Hemoglobin 5.7 g/dL (13.5-17.5)
[2025-08-11 05:14] LABS: Alanine Aminotransferase 23 U/L (7-40); Carbon Dioxide 20 mmol/L (20-31)
[2025-08-11 05:15] LABS: Anion Gap 10 (5-15); BUN/Creatinine Ratio 32.8 (10.0-20.0); Bilirubin, Total 0.9 mg/dL (0.2-1.0); Blood Urea Nitrogen 20 mg/dL (9-23); Potassium 3.9 mmol/L (3.5-5.1); Sodium 139 mmol/L (136-145)
[2025-08-11 05:17] LABS: Albumin 2.5 g/dL (3.2-4.8); Alkaline Phosphatase 165 U/L (46-116); Calcium 7.4 mg/dL (8.7-10.4); Chloride 109 mmol/L (98-107); Glucose 131 mg/dL (74-106); Total Protein 4.5 g/dL (5.7-8.2)
[2025-08-11] MEDS: MIDODRINE HCL 10 MG TAB PO SCH (06:46)
[2025-08-11 15:02] LABS: Hematocrit 26.8 % (41.0-53.0); Hemoglobin 8.9 g/dL (13.5-17.5)
[2025-08-12] VITALS (7 sets, daily range): BP systolic 98–107; BP diastolic 68–78; PULSE 67–85; RESP 14–20; TEMP 97.8–98.3; O2SAT 97–99
--- NOTE | 2025-08-12 17:22 | DVHDS2 ---
Discharge Summary Date of Admission Aug 10, 2025 at 22:19 Date of Discharge: Aug 12, 2025 Labs/Diagnostic Data: Laboratory Results Test 08/11/25 14:36 08/11/25 04:22 08/10/25 23:03 08/10/25 22:30 Hemoglobin 8.9 g/dL (13.5-17.5) Hematocrit 26.8 % (41.0-53.0) White Blood Count 4.0 10^3/uL (4.4-10.8) Red Blood Count 1.93 10^6/uL (4.5-5.90) Mean Corpuscular Volume 88.0 fL (80.0-100.0) Mean Corpuscular Hemoglobin 29.5 pg (28.0-32.0) Mean Corpuscular Hemoglobin Concent 33.5 g/dL (32.0-36.0) Red Cell Distribution Width 19.7 % (11.8-14.3) Platelet Count 107 10^3/uL (140-450) Mean Platelet Volume 7.1 fL (6.9-10.8) Neutrophils (%) (Auto) 56.8 % (37.0-80.0) Lymphocytes (%) (Auto) 26.5 % (10.0-50.0) Monocytes (%) (Auto) 16.1 % (0.0-12.0) Eosinophils (%) (Auto) 0.1 % (0.0-7.0) Basophils (%) (Auto) 0.5 % (0.0-2.0) Neutrophils # (Auto) 2.3 10 ^3/uL (1.6-8.6) Lymphocytes # (Auto) 1.1 10 ^3/uL (0.4-5.4) Monocytes # (Auto) 0.6 10 ^3/uL (0-1.3) Eosinophils # (Auto) 0 10 ^3/uL (0-0.8) Basophils # (Auto) 0 10 ^3/uL (0-0.2) Nucleated Red Blood Cells 1.0 % Sodium Level 139 mmol/L (136-145) Potassium Level 3.9 mmol/L (3.5-5.1) Chloride Level 109 mmol/L (98-107) Carbon Dioxide Level 20 mmol/L (20-31) Anion Gap 10 (5-15) Blood Urea Nitrogen 20 mg/dL (9-23) Creatinine 0.61 mg/dL (0.700-1.30) Glomerular Filtration Rate Calc 116 mL/min (>90) BUN/Creatinine Ratio 32.8 (10.0-20.0) Serum Glucose 131 mg/dL (74-106) Calcium Level 7.4 mg/dL (8.7-10.4) Total Bilirubin 0.9 mg/dL (0.2-1.0) Aspartate Amino Transferase (AST) 24 U/L (13-40) Alanine Aminotransferase (ALT) 23 U/L (7-40) Alkaline Phosphatase 165 U/L (46-116) Total Protein 4.5 g/dL (5.7-8.2) Albumin 2.5 g/dL (3.2-4.8) Lactic Acid Level 2.8 mmol/L (0.4-2.0) Urine Color Light-yellow (Yellow) Urine Clarity Clear (Clear) Urine pH 5.0 (5.0-9.0) Urine Specific [place] 1.015 (1.001-1.035) Urine Protein Trace (Negative) Urine Ketones Negative (Negative) Urine Blood Negative /uL (Negative) Urine Nitrite Negative (Negative) Urine Bilirubin Negative (Negative) Urine Urobilinogen Normal mg/dL (Negative) Urine Leukocyte Esterase Negative /uL (Negative) Urine RBC None seen /hpf (0 - 3) Urine Microscopic WBC 2 /HPF (0-3) Urine Squamous Epithelial Cells Few /hpf (<5) Urine Bacteria None seen /hpf (None Seen) Urine Mucus Few (None Seen) Urine Sperm Present /hpf (None Seen) Urine Glucose Normal mg/dL (Normal) Test 08/10/25 22:09 08/10/25 21:45 08/10/25 20:57 Hemoglobin A1c < 5.7 % A1C (<5.7) Troponin I High Sensitivity < 3 ng/L (</=54) Magnesium Level 1.6 mg/dL (1.6-2.6) B-Type Natriuretic Peptide 6.14 pg/mL (0-100) Other Laboratory Tests 08/11/25 14:36 08/11/25 04:22 Discharge Disposition: Home Discharge Instruct/Medications Diet: Cardiac 2g Na,low cholest Activity: No Restrictions, As Tolerated Scheduled Ferrous Sulfate (Ferrous Sulfate), 65 MG PO DAILY, (Reported) Ibuprofen (Ibuprofen), 1 TAB PO Q6HPRN, (Reported) Discharge Statement: "Patient was advised to return to the ER or call 911 if any headaches, dizziness, shortness of breath, chest pain, abdominal pain, bleeding, fevers, or worsening of medical condition. Patient was counseled about treatment plan, medications, possible side effects, patientverbalized understanding. All questions were answered to the best of my ability. This discharge took greater then 30 minutes in planning, reviewing documentation, counseling the patient, and discussing with other team members." ASSESSMENT ASSESSMENT Assessment Date of Service: Aug 12, 2025 Billing Provider: LATRELL SAUNDERS DO Common Visit Codes: [id number] DISCH DAY >30min LATRELL SAUNDERS DO Aug 12, 2025 17:22
--- NOTE | 2025-08-12 17:22 | DVHPN2 ---
Reviewed: Care Plan Changes from previous H/P or p: No Changes General: Per HPI Eyes: No Pain, No Vision change, No Conjunctivae inflammation, No Eyelid inflammation, No Other, No Redness ENT: No Ear pain, No Ear discharge, No Nose pain, No Nose discharge, No Nose congestion, No Mouth pain, No Mouth swelling, No Throat pain, No Throat swelling, No Other Cardiovascular: No Chest Pain, No Palpitations, No Orthopnea, No Paroxysmal Noc. Dyspnea, No Edema, No Lt Headedness; Other (Syncope) Respiratory: No Cough, No Dry, No Shortness of breath, No SOB with excertion, No Wheezing, No Hemoptysis, No Pleuritic Pain, No Sputum, No Other Gastrointestinal: Nausea, Vomiting; No Abdominal Pain, No Diarrhea, No Constipation, No Melena, No Hematochezia, No Other Genitourinary: No Dysuria, No Frequency, No Incontinence, No Hematuria, No Retention, No Other Musculoskeletal: No other, No neck pain, No shoulder pain, No arm pain, No back pain, No hand pain, No leg pain, No foot pain Skin: No Rash, No Lesions, No Jaundice, No Bruising, No Other Objective Vitals Vital Signs Date Time Temp Pulse Resp B/P (MAP) Pulse Ox O2 Delivery O2 Flow Rate FiO2 08/12/25 16:31 98.0 68 14 105/68 (80) 98 98.0 08/12/25 08:00 Room Air* 0 21 Intake/Output Intake and Output 08/12/25 06:59 Intake Total 3300 ml Output Total 400 ml Balance 2900 ml Intake Oral 400 ml IV Total 1100 ml Blood Product 1800 ml Output Urine Total 400 ml # Voids 3 Medications Current Medications Medications Dose Ordered Sig/Satish Route Start Time Stop Time Status Last Admin Dose Admin Sodium Chloride 1,000 ml @ 50 mls/hr Q20H IV 08/10/25 22:15 08/11/25 16:00 50 MLS/HR Acetaminophen/ Hydrocodone Bitart 1 tab Q4HP PRN PO 08/10/25 22:15 Ondansetron HCl 4 mg Q4HP PRN IV 08/10/25 22:15 Docusate Sodium 100 mg BIDPRN PRN PO 08/10/25 22:15 Ibuprofen 600 mg Q6HP PRN PO 08/10/25 22:15 Midodrine 10 mg TID@0600,1200,1800 PO 08/11/25 06:00 08/12/25 13:27 10 MG Nitroglycerin 0.4 mg Q5MINP PRN SL 08/10/25 22:30 Morphine Sulfate 2 mg Q30M PRN IV 08/10/25 22:30 Laboratory Results Laboratory Tests 08/11/25 04:22 08/11/25 14:36 Urinalysis Test 08/10/25 22:30 Urine Color Light-yellow (Yellow) Urine Clarity Clear (Clear) Urine pH 5.0 (5.0-9.0) Urine Specific [place] 1.015 (1.001-1.035) Urine Protein Trace (Negative) H Urine Ketones Negative (Negative) Urine Blood Negative /uL (Negative) Urine Nitrite Negative (Negative) Urine Bilirubin Negative (Negative) Urine Urobilinogen Normal mg/dL (Negative) Urine Leukocyte Esterase Negative /uL (Negative) Urine RBC None seen /hpf (0 - 3) Urine Microscopic WBC 2 /HPF (0-3) Urine Squamous Epithelial Cells Few /hpf (<5) Urine Bacteria None seen /hpf (None Seen) Urine Mucus Few (None Seen) Urine Sperm Present /hpf (None Seen) Urine Glucose Normal mg/dL (Normal) Assessment/Plan My Orders Orders - LATRELL SAUNDERS DO Procedure Category Date Status Time Discharge DISCHARGE 08/12/25 Transmitted 17:14 Date of Service: Aug 11, 2025 Billing Provider: LATRELL SAUNDERS DO Common Visit Codes: [id number] INP/OBS CARE(HIGH) LATRELL SAUNDERS DO Aug 12, 2025 17:22
--- NOTE | 2025-08-14 14:52 | ECG ---
[facility] Test Date: 2025-08-10 Test Time: 20:21:25 Pat Name: SIVA MAJANO Department: ED Room: 0216T B Gender: M Sales Order Coordinator: aron : 1975 Requested By: EMERGENCY EMERGENCY Order Number: [id number] Reading MD: Efrain Trevizo Measurements Intervals [place] Rate: 109 P: 51 LA: 163 QRS: 64 QRSD: 93 T: 59 QT: 356 QTc: 480 Interpretive Statements Sinus tachycardia Borderline prolonged QT interval Electronically Signed On 08-15-2025 17:40:44 PST by Efrain Trevizo Please click the below link to view image of tracing.
== END 2025-08-12 18:56 | disposition home or self-care (01) | DRG 663 ==
LOC: EDBD 20:19 → ER 20:19 → OVERFLOW 22:19 → TELE-CENTR 08-11 14:54
PROVIDERS: ADMIT Internal Medicine; ATTEND Internal Medicine
PROC: 30233N1 Transfusion of Nonautologous Red Blood Cells into Peripheral Vein, Percutaneous Approach (ICD-10-PCS; principal; 2025-08-11)
DX: D62 Acute posthemorrhagic anemia (principal); E43 Unspecified severe protein-calorie malnutrition; S09.90XA Unspecified injury of head, initial encounter; I95.9 Hypotension, unspecified; R73.9 Hyperglycemia, unspecified; X58.XXXA Exposure to other specified factors, initial encounter; Y93.89 Activity, other specified; Y92.89 Other specified places as the place of occurrence of the external cause; Y99.8 Other external cause status; Z85.05 Personal history of malignant neoplasm of liver; Z85.028 Personal history of other malignant neoplasm of stomach
CPT/HCPCS: 36415; 36430; 70450; 71045; 80053; 81001; 83036; 83605; 83735; 83880; 84484; 85014; 85018; 85025; 86850; 86900; 86901; 86920; 93005; 96361; 96365; 99291; G0378; J2405; P9047